=== PATIENT | female | born 1960 | race Caucasian/White ===

== ENCOUNTER 2016-11-08 00:10 | Emergency (ER) | payer OTHER ==
[~2016-11-08] VITALS: Ht 167.6 cm; Wt 90.5 kg
[2016-11-08 00:13] VITALS: Ht 167.6 cm; Wt 90.5 kg
[2016-11-08] MEDS ORDERED: KETOROLAC 30 MG INJ IM STA (00:57)
[2016-11-08] MEDS ORDERED: ONDANSETRON (ODT) 4 MG TAB ODT STA (00:57)
[2016-11-08 01:49] LABS: ADD UMIC YES; URINE BILIRUBIN (Dip) NEGATIVE (NEGATIVE); URINE BLOOD (Dip) TRACE (NEGATIVE); URINE COLOR LT. YELLOW (YELLOW); URINE GLUCOSE (Dip) NEGATIVE (NEGATIVE); URINE KETONES (Dip) NEGATIVE (NEGATIVE); URINE LEUKOCYTE ESTERASE (Dip) NEGATIVE (NEGATIVE); URINE NITRITE (Dip) NEGATIVE (NEGATIVE); URINE TOTAL PROTEIN (Dip) NEGATIVE (NEGATIVE); URINE UROBILINOGEN (Dip) 0.2 E.U./dL (0.1-1.0)
[2016-11-08 02:02] LABS: SQUAMOUS EPITHELIAL CELL,UR FEW; URINE RBCS 0-2 /HPF (0)
[2016-11-08 02:03] LABS: BACTERIA,URINE RARE
[2016-11-08] MEDS ORDERED: TAMS-14 PO (02:12)
[2016-11-08] MEDS ORDERED: IBUP-1542 PO (02:12)
[2016-11-08] MEDS ORDERED: BENZ100C70 PO (02:13)
[2016-11-08] MEDS ORDERED: GUAI-637 PO (02:13)
[2016-11-08 02:33] VITALS: BP 148/68; PULSE 65; RESP 16; TEMP 98.6
--- NOTE | 2016-11-08 03:28 | ERD ---
ER Documentation Chief Complaint Date/Time DATE: 11/08/16 TIME: 03:22 Chief Complaint back pain, nasal congestion, runny nose HPI Patient is a 56-year-old female with a past medical history of nephrolithiasis and 5 mm angiomyolipoma who presents to the emergency department with nasal congestion, cough and right-sided flank pain. Patient states her cough started 5 days ago. Patient states her cough is dry in nature. Patient has been taking azithromycin with some alleviation of symptoms. Patient denies any chest pain, shortness of breath or loss of consciousness. Patient is reporting throat pain, which is worse when coughing. Patient denies any trismus, drooling or hyperextension of her neck. Patient states 2 days ago she developed right-sided flank pain. The pain is constant. Patient states she did take ibuprofen yesterday which did alleviate some of the pain. Patient denies any falls or trauma. Patient denies any dysuria, frequency, urgency or hematuria. Patient denies any fevers or chills. Of note, patient recently started blood pressure medication however she is unsure of the name at this time. Patient has also not seen an urologist yet for her hx of nephrolithiasis and angiomyolipoma. ROS All systems reviewed and are negative except as per history of present illness. Medications Home Meds Active Scripts Guaifenesin* (Robitussin*) 100 Mg/5 Ml Syrup, 100 MG PO Q4H Y for COUGH, #1 BOT Prov:BRYANNA SOLIS-C 11/08/16 Benzonatate* (Tessalon Perle*) 100 Mg Capsule, 100 MG PO Q8H Y for COUGH, #20 CAP Prov:BRYANNA SOLIS PA-C 11/08/16 Tamsulosin Hcl* (Flomax*) 0.4 Mg Cap.er.24h, 0.4 MG PO BID, #7 CAP Prov:BRYANNA SOLIS PA-C 11/08/16 Ibuprofen* (Motrin*) 600 Mg Tab, 600 MG PO Q6, #30 TAB Prov:WILLBRYANNA PA-C 11/08/16 Allergies Allergies: Coded Allergies: No Known Allergy (Unverified , 12/03/15) PMhx/Soc History of Surgery: No Anesthesia Reaction: No Hx Neurological Disorder: No Hx Respiratory Disorders: No Hx Cardiac Disorders: Yes (htn,cardiac) Hx Psychiatric Problems: No Hx Miscellaneous Medical Probl: No Hx Alcohol Use: No Hx Substance Use: No Hx Tobacco Use: No Smoking Status: Never smoker FmHx Family History: No diabetes Physical Exam Vitals Vital Signs Date Time Temp Pulse Resp B/P Pulse Ox O2 Delivery O2 Flow Rate FiO2 11/08/16 02:33 98.6 65 16 148/68 100 Room Air 11/08/16 00:13 98.2 93 20 165/70 100 Physical Exam GENERAL: Well-developed, well-nourished female. Appears in no acute distress. Speaking in full sentences HEAD: Normocephalic, atraumatic. No deformities or ecchymosis. EYE: Pupils equal, round, and reactive to light. EOMs intact. No conjunctival erythema. No eye discharge. ENT: External ear without any masses or tenderness. Auditory canals clear bilaterally. TM visualized bilaterally, non-erythematous, non-bulging. Nasal mucosa pink with no discharge. Oropharynx is pink without any tonsillar erythema or exudates. No uvula deviation. No kissing tonsils. NECK: Supple. No meningismus. Normal ROM of the neck. LUNG: Clear to auscultation bilaterally. No rhonchi, wheezing, rales or coarse breath sounds. HEART: Regular rate and rhythm. No murmurs, rubs or gallops. ABDOMEN: Soft, nontender, and nondistended. Positive bowel sounds in all four quadrants. No rebound tenderness, no guarding. (-) McBurney's point tenderness. No CVA tenderness. BACK: No midline tenderness. EXTREMITES: Equal pulses bilaterally. No peripheral clubbing, cyanosis or edema. No unilateral leg swelling. NEUROLOGIC: Alert and oriented to person, place and time. Moving all four extremities. 5/5 strength in all extremities. Normal speech. Steady gait. SKIN: Normal color. Warm and dry. No rashes or lesions. Results 24 hrs Laboratory Tests Test 11/08/16 01:07 Urine Color LT. YELLOW Urine Clarity CLEAR Urine pH 5.5 Urine Specific [place] 1.020 Urine Ketones NEGATIVE Urine Nitrite NEGATIVE Urine Bilirubin NEGATIVE Urine Urobilinogen 0.2 E.U./dL Urine Leukocyte Esterase NEGATIVE Urine Microscopic RBC 0-2/HPF Urine Microscopic WBC 0-2/HPF Urine Squamous Epithelial Cells FEW Urine Bacteria RARE Urine Hemoglobin TRACE Urine Glucose NEGATIVE% Urine Total Protein NEGATIVE Current Medications Medications (Trade) Dose Ordered Sig/Jorge Route PRN Reason Start Time Stop Time Status Last Admin Dose Admin Ketorolac Tromethamine (Toradol) 30 mg ONCE STAT IM 11/08/16 00:57 11/08/16 00:59 DC 11/08/16 01:12 Ondansetron HCl (Zofran Odt) 4 mg ONCE STAT ODT 11/08/16 00:57 11/08/16 01:00 DC 11/08/16 01:11 Procedures/MDM ED COURSE: The patient was stable throughout ED course. I kept the patient and/or family informed of laboratory and diagnostic imaging results throughout the ED course. MEDICAL DECISION MAKING: This is a 56-year-old female who presents with dry cough and nasal congestion 5 days. Patient also reports right-sided flank pain 2 days. Patient denied any dysuria, frequency, urgency or hematuria. Patient denied any fevers or chills.. Vital signs were reviewed. Patient was afebrile. Patient was not hypoxic. ENT exam was normal. Lung exam was normal. Abdominal exam was negative. Urinalysis was negative for hematuria or acute infection. Given that patient has had CT scans in the past, there is no indication for CT at this time. Patient will be prescribed empiric therapy for nephrolithiasis. Patient's cough and nasal congestion are likely due to viral URI versus bronchitis. Patient was advised to continue azithromycin as prescribed to her. Patient also advised to follow-up with her primary care physician in regards to the new blood pressure medication she was prescribed as this may be also contributing to her dry cough. Low suspicion for pneumothorax, pneumonia, UTI, pyelonephritis, rib fracture, meningitis, sinusitis, otitis externa, acute otitis media, strep pharyngitis, epiglottitis or peritonsillar abscess. PRESCRIPTIONS: Ibuprofen, Flomax, Robitussin, Tessalon Perles DISCHARGE: At this time, patient is stable for discharge and outpatient management. Supportive therapies such as OTC throat lozenges, salt water gurgles, popsicles and jello discussed. I have instructed the patient to follow-up with his/her primary care physician in 1-2 days. Patient advised to follow up with associate property manager/urologist for flank pain and hx of angiomyolipoma. Referral information provided. I have instructed the patient to promptly return to the ER for any new or worsening symptoms including increased pain, swelling, fever, nausea, vomiting, weakness or difficulty breathing. The patient and/or family expressed understanding of and agreement with this plan. All questions were answered. Home care instructions were provided. Departure Diagnosis: Primary Impression: Bronchitis Additional Impression: Nephrolithiasis Condition: Stable Patient Instructions: What Is Bronchitis?, Flank Pain, Uncertain Cause Referrals: CHANDLER DICKERSON MD,PETEY TEJADA,YOEL GRIJALVA,DARIN ROD,GEOVANNY BERUMEN,ARUN ANDERSEN= [facility] YOU HAVE RECEIVED A MEDICAL SCREENING EXAM AND THE RESULTS INDICATE THAT YOU DO NOT HAVE A CONDITION THAT REQUIRES URGENT TREATMENT IN THE EMERGENCY DEPARTMENT. FURTHER EVALUATION AND TREATMENT OF YOUR CONDITION CAN WAIT UNTIL YOU ARE SEEN IN YOUR DOCTORS OFFICE WITHIN THE NEXT 1-2 DAYS. IT IS YOUR RESPONSIBILITY TO MAKE AN APPOINTMENT FOR FOLOW-UP CARE. IF YOU HAVE A PRIMARY DOCTOR --you should call your primary doctor and schedule an appointment IF YOU DO NOT HAVE A PRIMARY DOCTOR YOU CAN CALL OUR PHYSICIAN REFERRAL HOTLINE AT IF YOU CAN NOT AFFORD TO SEE A PHYSICIAN YOU CAN CHOSE FROM THE FOLLOWING [facility] [address] [facility]. [facility] [address] [facility] [facility] [address] [facility] [facility] [address] [facility]. [facility] [address] [facility]. [facility]. [address] [facility]. [facility] YOU HAVE RECEIVED A MEDICAL SCREENING EXAM AND THE RESULTS INDICATE THAT YOU DO NOT HAVE A CONDITION THAT REQUIRES URGENT TREATMENT IN THE EMERGENCY DEPARTMENT. FURTHER EVALUATION AND TREATMENT OF YOUR CONDITION CAN WAIT UNTIL YOU ARE SEEN IN YOUR DOCTORS OFFICE WITHIN THE NEXT 1-2 DAYS. IT IS YOUR RESPONSIBILITY TO MAKE AN APPOINTMENT FOR FOLOW-UP CARE. IF YOU HAVE A PRIMARY DOCTOR --you should call your primary doctor and schedule and appointment IF YOU DO NOT HAVE A PRIMARY DOCTOR YOU CAN CALL OUR PHYSICIAN REFERRAL HOTLINE AT . IF YOU CAN NOT AFFORD TO SEE A PHYSICIAN YOU CAN CHOSE FROM THE FOLLOWING [facility] INSTITUTIONS: [facility] [address] [place] [address] [facility] [address] [place] [address] [facility] [address] [place] [address] Additional Instructions: Call your primary care doctor TOMORROW for an appointment during the next 1-2 days.See the doctor sooner or return here if your condition worsens before your appointment time. Continue azithromycin as prescribed. Follow-up with your urologist and/or associate property manager for your flank pain. BRYANNA SOLIS PA-C November 08, 2016 03:28
== END 2016-11-08 02:35 | disposition home or self-care (01) ==
LOC: FTE 00:10
DX: J20.9 Acute bronchitis, unspecified (principal); I10 Essential (primary) hypertension; N20.0 Calculus of kidney
CPT/HCPCS: 81001; 96372; 99284; J1885; 81003